=== PATIENT | male | born 1975 | race African-American/Black ===

== ENCOUNTER 2021-10-26 18:14 | Inpatient (IN) | payer OTHER ==
[~2021-10-26] VITALS: Ht 177.8 cm; Wt 80.7 kg
[2021-10-26] MEDS ORDERED: VYVANSE70 MG (19:18)
[2021-10-26] MEDS ORDERED: GENVOYA TABLET1 EACH PO (19:18)
== END 2021-10-30 19:15 | disposition home or self-care (01) | DRG 175 ==
LOC: ER 18:14 → MEDJ 10-27 09:17
PROVIDERS: ADMIT Internal Medicine; ATTEND Internal Medicine
PROC: B24BZZZ Ultrasonography of Heart with Aorta (ICD-10-PCS; principal; 2021-10-27)
PROC: 4A12X4Z Monitoring of Cardiac Electrical Activity, External Approach (ICD-10-PCS; 2021-10-27)
DX: I26.93 Single subsegmental thrombotic pulmonary embolism without acute cor pulmonale (principal); J18.9 Pneumonia, unspecified organism; B20 Human immunodeficiency virus [HIV] disease; F98.8 Other specified behavioral and emotional disorders with onset usually occurring in childhood and adolescence; Z20.822 Contact with and (suspected) exposure to COVID-19